=== PATIENT | male | born 1955 | race Caucasian/White ===

== ENCOUNTER 2016-12-20 19:10 | Emergency (ER) | payer MEDICAID, MEDICARE ==
[~2016-12-20] VITALS: Ht 167.6 cm; Wt 97.2 kg
[~2016-12-20 19:10] MED LIST: IBUP600T26 PO; LATU40TA PO; SERO400T3 PO; SYNT175T PO
[2016-12-20 19:26] VITALS: BP 121/66; PULSE 99; RESP 16; TEMP 98.1; O2SAT 96
[2016-12-20 20:25] VITALS: BP 127/65; PULSE 88; RESP 16; O2SAT 98
[2016-12-20] MEDS ORDERED: ATOR20TA15 PO (20:36)
[2016-12-20] MEDS ORDERED: FISHCAP4 PO (20:36)
[2016-12-20] MEDS ORDERED: OMEP20TA PO (20:36)
[2016-12-20] MEDS ORDERED: METF850T PO (20:36)
[2016-12-20] MEDS ORDERED: DAPA1TAB PO (20:36)
[2016-12-20] MEDS ORDERED: CARB25TA9 PO (20:36)
[2016-12-20] MEDS ORDERED: LEVO25TA4 PO (20:36)
[2016-12-20] MEDS ORDERED: QUET300XR PO (20:36)
[2016-12-20] MEDS ORDERED: DEPA500T3 PO (20:36)
[2016-12-20] MEDS ORDERED: GLIP5TAB8 PO (20:36)
--- NOTE | 2016-12-20 20:56 | PD ---
HPI Chief Complaint: Oral / Dental Pain or Problem Time Seen by Provider: 20:42 Travel History International Travel<30 days: No Contact w/Intl Traveler<30days: No Traveled to known affect area: No History of Present Illness HPI 60-year-old male complains of persistent pain on the tongue and the mouth and the gum. Patient states that he has persistent pain for the past 3 years. Patient has been seen by personal physician Dr. Allen and given prescription for Magic mouthwash. Patient has been taking the medication for the past 3 years. Patient denies any new problem. Patient denies any fever chills. Patient denies any problems swallowing. Patient was seen by a physician in [place] 6 days ago and was diagnosed gingivostomatitis and canker sore. Patient was given prescription for doxycycline. Patient took doxycycline as directed. Patient states that he had persistent soreness on the tongue and the mouth despite the medication. PFSH Past Medical History ADHD: Yes (BEEN ON ADDERAL, PER REPORT) Bipolar Disorder: Yes Anxiety: Yes Depression: Yes High Cholesterol: Yes Diabetes: Yes (Newly diagnosed) Patient Takes Glucophage: Yes Diminished Hearing: No Endocrine: Yes Gastrointestinal Disorders: Yes GERD: Yes Insomnia: Yes Psychiatric: Yes Schizophrenia: Yes (SCHIZOAFFECTIVE DISORDER) Thyroid Disease: Yes (HYPOTHYROID) Triglycerides - High: Yes ?: Not Past Surgical History Genitourinary Surgery: Yes (HYDROCELE REPAIR) Social History Alcohol Use: No Tobacco Use: Yes (/e-cigarette) Substance Use: No Allergies-Medications (Allergen,Severity, Reaction): Coded Allergies: No Known Allergies (Verified , 10/18/14) Reported Meds & Prescriptions Reported Meds & Active Scripts Active Reported Fish Oil + D3 (Fish Oil-Cholecalciferol) 1,200-1,000 Mg-Unit Cap 1 Cap PO DAILY Glipizide 5 Mg Tab 5 Mg PO DAILY Take 30 minutes before a meal Carbidopa-Levodopa 25-100 Mg Tab 1 Tab PO Q8HR Metformin (Metformin HCl) 850 Mg Tab 850 Mg PO TIDPC With meals Farxiga (Dapagliflozin) 5 Mg Tab 5 Mg PO DAILY Atorvastatin (Atorvastatin Calcium) 20 Mg Tab 20 Mg PO HS Levothyroxine (Levothyroxine Sodium) 25 Mcg Tab 25 Mcg PO DAILY Omeprazole 20 Mg Tab 20 Mg PO DAILY Depakote ER (Divalproex Sodium) 500 Mg Pauline 1,000 Mg PO DAILY Seroquel XR (Quetiapine Fumarate) 300 Mg Tab 300 Mg PO DAILY Review of Systems General / Constitutional: No: Fever Eyes: No: Visual changes HENT: No: Headaches Cardiovascular: No: Chest Pain or Discomfort Respiratory: No: Shortness of Breath Gastrointestinal: No: Abdominal Pain Genitourinary: No: Dysuria Musculoskeletal: No: Pain Skin: No Rash Neurologic: No: Weakness Psychiatric: No: Depression Endocrine: No: Polydipsia Hematologic/Lymphatic: No: Easy Bruising Physical Exam Narrative GENERAL: Well-nourished, well-developed patient. SKIN: Focused skin assessment warm/dry. HEAD: Normocephalic. EYES: No scleral icterus. No injection or drainage. NECK: Supple, trachea midline. No JVD or lymphadenopathy. CARDIOVASCULAR: Regular rate and rhythm without murmurs, gallops, or rubs. RESPIRATORY: Breath sounds equal bilaterally. No accessory muscle use. GASTROINTESTINAL: Abdomen soft, non-tender, nondistended. MUSCULOSKELETAL: No cyanosis, or edema. BACK: Nontender without obvious deformity. No CVA tenderness. Examination of the mouth diffuse no lesions on the tongue, the lips or the gum. No redness no heat noted. No cervical lymphadenitis. Data Data Last Documented VS Vital Signs Date Time Temp Pulse Resp B/P (MAP) Pulse Ox O2 Delivery O2 Flow Rate FiO2 12/20/16 20:25 88 16 127/65 (85) 98 Room Air 12/20/16 19:26 98.1 MDM Medical Decision Making Medical Screen Exam Complete: Yes Emergency Medical Condition: Yes Differential Diagnosis Differential diagnosis including mucous membrane irritation, stomatitis. Narrative Course 60-year-old male with persistent pain inside the mouth. Diagnosis Primary Impression: Mouth pain Patient Instructions: General Instructions Additional Instructions: Advised patient to follow-up with ENT physician. Med/Other Pt SpecificInfo: No Change to Meds Disposition: 01 DISCHARGE HOME Condition: Stable Real Whitten MD Dec 20, 2016 20:56
== END 2016-12-20 21:17 | disposition home or self-care (01) ==
LOC: PHED 19:10
DX: K08.89 Other specified disorders of teeth and supporting structures (principal)
CPT/HCPCS: 99281